=== PATIENT | female | born 1970 ===

== ENCOUNTER 2017-07-10 10:04 | Outpatient (CLI) | payer OTHER ==
--- NOTE | 2017-07-10 12:49 | Ultrasound Report ---
ULTRASOUND GUIDED NEEDLE CORE BIOPSY WITH CLIP PLACEMENT AT 2 SITES LEFT BREAST : 07/10/17 CLINICAL: Left breast masses at 12 o'clock and 4 o'clock. COMPARISON :[facility]ogram and ultrasound 07/01/17 FINDINGS: The procedure was explained to the patient and informed consent was obtained . Ultrasound demonstrated the previously described solid masses at 12 o'clock 5 cm from the nipple and at 4 o'clock 7 cm from the nipple. The mass at 12 o'clock measures 1.6 x 0.6 x 0.9 cm and the mass at 4 o'clock measures 2.1 x 0.9 x 1.4 cm. The skin was prepped with Betadine and anesthetized with 1% lidocaine. Ultrasound needle core biopsy was performed at 12 o'clock through a small dermatotomy using ultrasound guidance, 2% lidocaine with epinephrine for deep anesthesia and a 14-gauge Achieve biopsy device. 3 cores were obtained and placed in formalin. A localizer clip was deployed within the mass. The skin was prepped with Betadine and anesthetized with 1% lidocaine. Ultrasound needle core biopsy was performed for clot through a small dermatotomy using ultrasound guidance, 2% lidocaine with epinephrine for deep anesthesia and a 14-gauge Achieve biopsy device. 3 cores were obtained and placed in formalin. A localizer clip was deployed within the lesion. Hemostasis was obtained both sites with minimal pressure and sterile dressings were applied. The patient tolerated the procedure well and there were no apparent complications. A two-view mammogram demonstrated concordant clip placement at 2 sites. She was discharged in good condition and was given instructions for wound care and followup. IMPRESSION: Uncomplicated ultrasound-guided needle core biopsy of 2 left breast masses .
--- NOTE | 2017-07-10 12:50 | Mammography Report ---
LEFT DIGITAL DIAGNOSTIC MAMMOGRAM: 07/10/17 10:04:00 CLINICAL: For clip placement immediately status post ultrasound biopsy. COMPARISON:[facility] 07/01/17 mammogram FINDINGS: 2 biopsy clips are identified on the lateral view which correlate with the masses at 12 o'clock and 4 o'clock. Only one clip is identified on the CC view. This can be explained by the fact that the mass at 4 o'clock is at the inframammary fold and was apparently not included on the CC view of the mammogram. IMPRESSION: Concordant clip placement status post ultrasound biopsy. BI-RADS CATEGORY: 4--Suspicious Pathology pending.
== END 2017-07-10 10:05 | disposition home or self-care (01) ==
LOC: SPVWC 10:04
PROVIDERS: ATTEND Obstetrics & Gynecology
DX: N63 Unspecified lump in breast (principal)
CPT/HCPCS: 19083; 19084; 88305; A4648; G0206